=== PATIENT | male | born 1945 | race African-American/Black ===

== ENCOUNTER → 2016-10-10 11:58 | Outpatient (CLI) | payer MEDICARE, BC ==
[2016-10-10 12:32] LABS: BASOPHILS 0.4 % (0-2); EOSINOPHILS 2.6 % (0-7); HEMATOCRIT 40.7 % (42.0-54.0); HEMOGLOBIN 13.8 g/dL (13.5-17.5); IMMATURE GRANULOCYTES 0.2 % (0-5); LYMPHOCYTES 14.3 % (15-50); MCH 29.2 pg (26.0-34.0); MCHC 33.9 g/dL (31.0-37.0); MCV 86.2 fL (80.0-100.0); MEAN PLATELET VOLUME 10.3 fL (7.4-10.4); MONOCYTES 10.6 % (2-11); NEUTROPHILS 71.9 % (40-80); PLATELET COUNT 135 10x3/uL (130-400); RBC 4.72 10x6/uL (4.20-6.10); WBC 4.7 10x3/uL (4.8-10.8)
[2016-10-10 12:39] LABS: APTT 24.6 SECONDS (22.8-39.4)
[2016-10-10 12:40] LABS: INR 1.03 (0.85-1.17); PROTIME 13.4 SECONDS (11.6-15.0)
[2016-10-10 13:01] LABS: ALBUMIN 3.8 g/dL (3.4-5.0); ANION GAP 10.8 mmol/L (8-16); BILIRUBIN - TOTAL 0.73 mg/dL (0.2-1.3); CALCIUM 8.6 mg/dL (8.5-10.1); CARBON DIOXIDE 30.9 mmol/L (21.0-32.0); CREATININE - SERUM 1.1 mg/dL (0.6-1.3); POTASSIUM - SERUM 3.7 mmol/L (3.5-5.1); PROTEIN - SERUM 7.1 g/dL (6.4-8.2)
== END | disposition home or self-care (01) ==
LOC: D.LAB 11:58
DX: C08.9 Malignant neoplasm of major salivary gland, unspecified (principal)

== ENCOUNTER → 2016-10-24 11:16 | Outpatient (CLI) | payer MEDICARE, BC ==
[~2016-10-24] VITALS: Ht 188 cm; Wt 88.6 kg
--- NOTE | ~2016-10-24 | HEMODYNAMI ---
PATIENT:JASON JAMES MEDICAL RECORD: [id number] : 41 LOCATION:[facility] ADMISSION DATE: 10/24/16 Generatedon:10/24/201613:39 Patient name: JASON JAMES Patient #: [id number] SSN: [id number] : 1945 Date of study: 10/24/2016 Page: Of Hemodynamic Procedure Report Patient Data Patient Demographics Procedure consent was obtained First Name: JASON Gender: Male Last Name: ERIKA : 1945 [facility] Initial: D Age: 71 year(s) Patient #: [id number] Race: Black SSN: [id number] Additional ID: [id number] Contact details [address]: [address] [place] [address] State: [place] City: [place] Zip code: [address] Admission Admission Data Admission Date: 10/24/2016 Admission Time: 11:16 Arrival Date: 10/24/2016 Arrival Time: 13:30 Admit Source: Other Insurance Payor: Medicare Height (in.): 73.5 BSA: 2.12 (m2) Height (cm.): 186.69 BMI: 24.73 (kg/m2) Weight (lbs.): 190 Weight (kg.): 86.18 Lab Results Lab Result Date: 10/24/2016 Lab Result Time: 0:00 Biochemistry Name Units Result Min Max BUN mg/dl 13 --(--*-)-- 7 18 Creatinine mg/dl 1.1 --(--*-)-- 0.6 1.3 CBC Name Units Result Min Max Hemoglobin g/dl 14.5 --(*---)-- 13.5 17.5 Procedure Procedure Types Cath Procedure Diagnostic Procedure [facility] w/Coronaries PCI Procedure Coronary Stent Initial Miscellaneous Procedures Moderate Sedation up to 30 minutes Procedure Description Procedure Date Procedure Date: 10/24/2016 Procedure Start Time: 13:19 Procedure End Time: 13:36 Procedure Staff Name Function Reza Benavides MD Performing Physician Denia Eddy RT Scrub Rabia Sams RN Nurse Teresita Hu RT Monitor Procedure Data Cath Procedure Fluoroscopy Diagnostic fluoroscopy Total fluoroscopy Time: 3.8 time: 3.8 min min Diagnostic fluoroscopy Total fluoroscopy dose: 637 dose: 637 mGy mGy Contrast Material Contrast Material Type Amount (ml) Isovue 300 79 Entry Location Entry Primary Successful Side Size Upsize Upsize Entry Closure Succes sful Closure Location (Fr) 1 (Fr) 2 (Fr) Remarks Device Remarks Femoral Right 5 Fr 6 Fr Exoseal artery Short Estimated blood loss: 5 ml Diagnostic catheters Device Type Used For End Catheter Placement Cordis 5Fr JL 4.0 Left Coronary Catheter (MP) Angiography Cordis 5Fr 3DRC Catheter Right Coronary (MP) Angiography Cordis 5Fr Pigtail LV Angiography Catheter (MP) Procedure Complications No complications Procedure Medications Medication Administration Route Dosage Oxygen NC 2 l/min Heparin Flush Bag added to field 2 bags (1000units/500ml NS) Lidocaine 2% added to field 20 Fentanyl I.V. 50 mcg Versed I.V. 1 mg Fentanyl I.V. 25 mcg Versed I.V. 0.5 mg Fentanyl I.V. 25 mcg Versed I.V. 0.5 mg Heparin Bolus I.V. 4000 units Integrilin (Bolus I.V. 7.9 ml 2mg/ml) Hemodynamics Rest BSA: 2.12 (m2) HGB: 14.5 (g/dl) O2 Consumption: Estimated: 251.41 (ml/min) O2 Co nsumption indexed: Estimated:118.59 (ml/min/m) Heart Rate: 79 (bpm) Pressure Samples Time Site Value (mmHg) Purpose Heart Use Rate(bpm) 13:26 LV 127/14,15 Snapshot 86 Gradients Valve Time Site Site Mean SEP/DFP Peak To Heart Use 1 2 (mmHg) (sec/min) Peak Rate (mmHg) (bpm) Aortic 13:27 LV AO 86 Snapshots Pre Cath Intra NCS Post Cath Vital Signs Time Heart Resp SPO2 NIBP (mmHg) Rhythm Pain Sedation Rate (ipm) (%) Status Level (bpm) 13:00:22 78 17 99 144/85(110) NSR 0 (11) 10(A) , No pain 13:04:38 80 18 100 133/76(103) NSR 0 (11) 10(A) , No pain 13:08:48 78 18 100 126/77(103) NSR 0 (11) 10(A) , No pain 13:12:56 75 16 100 121/77(95) NSR 0 (11) 10(A) , No pain 13:17:04 82 17 99 122/74(101) NSR 0 (11) 9(A) , No pain 13:21:12 80 18 99 115/70(93) NSR 0 (11) 9(A) , No pain 13:25:15 85 18 98 123/75(91) NSR 0 (11) 9(A) , No pain 13:29:21 86 20 99 120/75(98) NSR 0 (11) 9(A) , No pain 13:33:31 88 16 98 113/64(88) NSR 0 (11) 9(A) , No pain Medications Time Medication Route Dose Verified Delivered Reason Notes Effectiveness by by 12:57:39 Oxygen NC 2 Rabia Rabia used for l/min Sams Sams cabinet maker RN 12:57:46 Heparin Flush added 2 Rabia Rabia used for Bag to bags Sams Sams procedure (1000units/500ml RN RN NS) 12:57:54 Lidocaine 2% added 20ml Rabia Rabia used for to vial Sams Sams procedure RN RN 13:15:40 Fentanyl I.V. 50 Rabia Rabia for sedation mcg Latrell Sams RN RN 13:15:47 Versed I.V. 1 mg Rabia Rabia for sedation Latrell Sams RN RN 13:28:24 Fentanyl I.V. 25 Rabia Rabia for sedation mcg Latrell Sams RN RN 13:28:29 Versed I.V. 0.5 Rabia Rabia for sedation mg Samssidney Sams RN RN 13:30:28 Fentanyl I.V. 25 Rabia Rabia for sedation mcg Latrell Sams RN RN 13:30:33 Versed I.V. 0.5 Rabia Rabia for sedation mg Latrell Sams RN RN 13:30:38 Integrilin I.V. 7.9ml Rabia Rabia for 2.1 ml (Bolus 2mg/ml) Sams Sams anticoagulation integrilin RN RN wasted 13:30:38 Heparin Bolus I.V. 4000 Rabia Rabia units Latrell Sams RN school transportation supervisor Log Time Note 12:46:41 Informed consent obtained and on chart 12:46:45 Diagnostic Cath Status : Elective 12:47:28 Rabia Sams RN sent for patient. Start room use. 12:47:29 Time tracking: Regular hours 12:47:33 Plan of Care:Hemodynamics will remain stable., Cardiac rhythm will remain stable., Comfort level will be maintained., Respiratory function will remain adequate., Patient/ family verbilizes understanding of procedure., Procedure tolerated without complication., Recovers from procedure without complications.. 12:48:25 Arrival Date: 10/24/2016 1:30:00 PM 12:48:34 Insurance Payor : Medicare 12:48:35 Admit Source: Other 12:48:46 Patient Height : 186.69 cm 12:48:53 Patient Weight : 86.18 kg 12:50:28 Patient received from Pre/Post Procedure Room to [facility] 2 Alert and oriented. Tansferred to table in Supine position. 12:50:29 Warm blankets applied, and zaid hugger turned on for patient comfort. 12:50:29 Correct patient and procedure confirmed by team. 12:50:30 ECG and BP/O2 sat monitors applied to patient. 12:52:12 Lab Result : BUN 13 mg/dl 12:52:12 Lab Result : Hemoglobin 14.5 g/dl 12:52:12 Lab Result : Creatinine 1.1 mg/dl 12:57:39 Oxygen 2 l/min NC was administered by Rabia Sams RN; used for procedure; 12:57:46 Heparin Flush Bag (1000units/500ml NS) 2 bags added to field was administered by Rabia Sams RN; used for procedure; 12:57:54 Lidocaine 2% 20ml vial added to field was administered by Rabia Sams RN; used for procedure; 12:59:14 Vital chart was started 12:59:15 Baseline sample Acquired. 12:59:20 Rhythm: sinus rhythm 12:59:22 Full Disclosure recording started 12:59:35 H&P Date Dictated: 10/10/2016 Within 30 days and on chart., H&P Addendum completed by physician on day of procedure. (MUST COMPLETE FOR ALL OUTPATIENTS). 12:59:36 Pre-procedure instructions explained to patient. 12:59:38 Pre-op teaching completed and patient verbalized understanding. 12:59:40 Family in waiting room. 12:59:41 Patient NPO since Midnight. 12:59:46 Is the patient allergic to Iodine/contrast media? No. 12:59:47 Was the patient premedicated? No 12:59:48 Is patient on blood thinner?No 12:59:49 Patient diabetic? No. 12:59:52 Previous problem with sedation/anesthesia? No ? 12:59:53 Snore? Yes 12:59:54 Sleep apnea? No 12:59:55 Deviated septum? No 12:59:56 Opens mouth fully? Yes 12:59:57 Sticks out tongue? Yes 12:59:58 Airway obstruction? No ? 13:00:01 Dentures? No ? 13:00:06 Pre procedure: right dorsailis pedis pulse 1+ Palpable, but thready & weak; easily obliterated 13:00:09 Pre procedure: left dorsailis pedis pulse 1+ Palpable, but thready & weak; easily obliterated 13:00:11 Patient pain scale 0/10 ?. 13:00:59 IV patent on arrival in left forearm with 0.9% NaCl at [facility]. 13:01:02 Lab results completed and on chart. 13:01:05 Right groin area was prepped with chlora-prep and draped in sterile fashion 13:01:06 Alarms reviewed by R. N. 13:01:07 Sharps counted by scrub and verified by R.N. 13:03:23 Use device set Femoral Dx 13:03:24 Acist Syringe opened to sterile field. 13:03:25 Bag Decanter opened to sterile field. 13:03:25 Medline Cath Pack opened to sterile field. 13:03:26 Terumo 5Fr [place] Sheath opened to sterile field. 13:03:26 St Francisco 260cm J .035 wire opened to sterile field. 13:03:27 Acist Hand Control opened to sterile field. 13:03:28 Acist Manifold opened to sterile field. 13:03:28 Diagnostic Infinity 5Fr Multipack catheter opened to sterile field. 13:03:28 Tegaderm 4 x 4 opened to sterile field. 13:11:55 Zero performed for pressure channel P1 13:12:05 Physician paged 13:14:08 Physician arrived 13:14:08 --------ALL STOP TIME OUT------ 13:14:09 Final Timeout: patient, procedure, and site verified with staff and physician. All members of the team are in agreement. 13:14:11 Right groin site verified by team. 13:14:15 Physical assessment completed. ASA score P 2 - A patient with mild systemic disease as per Reza Benavides MD. 13:14:18 Sedation plan: IV Moderate Sedation Versed, Fentanyl 13:15:40 Fentanyl 50 mcg I.V. was administered by Rabia Sams RN; for sedation; 13:15:47 Versed 1 mg I.V. was administered by Rabia Sams RN; for sedation; 13:19:24 Procedure started. 13:19:27 Local anesthetic to right femoral artery with Lidocaine 2% by Reza Benavides MD.INITIAL ACCESS ONLY 13:19:40 A 5 Fr sheath was inserted into the Right Femoral artery 13:20:58 A Cordis 5Fr JL 4.0 Catheter (MP) was advanced over the wire and used for Left Coronary Angiography. 13:21:23 LCA angiography performed. 13:21:29 Injector settings: Ml/sec: 3, Volume: 6, 13:22:57 Catheter removed. 13:23:03 A Cordis 5Fr 3DRC Catheter (MP) was advanced over the wire and used for Right Coronary Angiography. 13:23:44 RCA angiography performed. 13:23:50 Injector settings: Ml/sec: 3, Volume: 6, 13:25:19 Catheter removed. 13:25:56 A Cordis 5Fr Pigtail Catheter (MP) was advanced over the wire and used for LV Angiography. 13:26:41 LV hemodynamics recorded. 13:26:43 LV gram done using RIVERA 13:26:46 Injector settings: Ml/sec: 5, Volume: 15, 13:27:15 EF : 55 % 13:27:33 Catheter removed. 13:27:34 Proceeding to intervention. 13:28:03 Medtronic Launcher 6Fr HS I guide catheter opened to sterile field. 13:28:04 Owen Whisper J 300cm 0.014 guide wire opened to sterile field. 13:28:05 Terumo 6Fr [place] Sheath opened to sterile field. 13:28:05 Noonswoon BasixCompak Inflation Kit opened to sterile field. 13:28:13 Sheath upsized to a 6 Fr Short. 13::21 6 Fr hs 1 guide catheter was inserted over the wire 13::24 Fentanyl 25 mcg I.V. was administered by Rabia Sams RN; for sedation; ::29 Versed 0.5 mg I.V. was administered by Rabia Sams RN; for sedation; ::28 Fentanyl 25 mcg I.V. was administered by Rabia Sams RN; for sedation; ::33 Versed 0.5 mg I.V. was administered by Rabia Sams RN; for sedation; :: Integrilin (Bolus 2mg/ml) 7.9ml I.V. was administered by Rabia Sams RN; for anticoagulation; 2.1 ml integrilin wasted :: Heparin Bolus 4000 units I.V. was administered by Rabia Sams RN; ; ::28 Inflation Number: 1 A Performance Labtronic Integrity 3.5 X 15 stent was prepped and advanced across the Mid RCA. The stent was deployed at 14 NELSON for 0:30 (min:sec). 13:33:56 Stent catheter was removed intact over wire. 13:33:56 Wire removed. 13:33:57 Guide catheter removed. 13:35:05 Cordis 6Fr Exoseal opened to sterile field. 13:35:25 Sheath removed intact; hemostasis achieved with Exoseal to the Right Femoral artery. 13:35:28 Procedure ended.(Physican Out) 13:35:38 Fluoroscopy time 03.80 minutes. 13:35:47 Fluoroscopy dose: 637 mGy 13:35:47 Flurop Dose total: 637 13:35:51 Contrast amount:Isovue 300 79ml. 13:35:53 Sharps counted by scrub and verified by R.N. 13:35:54 Insertion/operative site no bleeding no hematoma. 13:35:57 Post-op/insertion site Right Femoral artery dressed using a 4 x 4 and Tegaderm. 13:35:59 Post right femoral artery:stable 13:36:01 Post Procedure Pulses reassessed and unchanged 13:36:03 Post procedure rhythm: unchanged. 13:36:06 Estimated blood loss: 5 ml 13:36:07 Post procedure instruction explained to patient.Patient verbalizes understanding. 13:36:08 Patient needs reinforcement of post procedure teaching. 13:36:28 Procedure type changed to Cath procedure, Diagnostic procedure, LHC, LHC w/Coronaries, PCI procedure, Coronary Stent Initial, Miscellaneous Procedures, Moderate Sedation up to 30 minutes 13:36:29 Procedure and supply charges have been captured, reviewed, submitted and are correct. 13:36:33 Procedure Complication : No complications 13:36:36 Vital chart was stopped 13:36:38 See physician's report for complete and final results. 13:36:40 Report given to Pre/Post Procedure Room. 13:36:42 Patient transfered to Pre/Post Procedure Room with Stretcher. 13:36:44 Procedure ended. 13:36:44 Full Disclosure recording stopped 13:36:55 ACC-PCI Only Patient was given prescriptions, or instructed by Reza Benavides MD to start/continue the following medications upon discharge: Plavix 13:36:58 End room use (Document Last) Intervention Summary Intervention Notes Time ActionType Lesion and Equipment Action# Pressure Duration Attributes Used 13:33:28 Place stent Mid RCA Medtronic 1 14 00:30 Integrity 3.5 X 15 stent Device Usage Item Name Manufacture Quantity Catalog Hospital Part Current Minimal L ot# / Number Charge Number Stock Stock Serial# Code Acist Acist 1 03366 878378 666005 660255 20 Syringe Medical Systems Inc Bag Microtek 1 2002S 161585 62650 679186 5 DecTiempy Medical Inc. Medline Cardinal 1 [id number] 603352 14241 488771 5 Cath Pack Health Terumo 5Fr Terumo 1 [id number] 158783 299248 498923 [address] Francisco 1 813952 378577 763122 326127 30 260cm J .035 wire Acist Hand Acist 1 39983 968644 079588 101580 5 Control Medical Systems Inc Acist Acist 1 20397 227806 067261 078200 5 Manifold Medical Systems Inc Diagnostic Cardinal 1 [id number] 173605 69580 683067 30 Orad 5Fr Multipack catheter Tegaderm 4 3M 1 1626W 445555 003918 742691 5 x 4 Cordis 5Fr Cardinal 1 828068 5 JL 4.0 Health Catheter (MP) Cordis 5Fr Cardinal 1 589610 5 3DRC Health Catheter (MP) Cordis 5Fr Cardinal 1 910408 5 Pigtail Health Catheter (MP) Medtronic Medtronic 1 LA6I 753947 17267 324312 1 Launcher 6Fr HS I guide catheter Owen Owen 1 [id number] 095716 939002 463821 5 Whisper J Vascular 300cm 0.014 guide wire Terumo 6Fr Terumo 1 [id number] 454547 274157 025218 40 [place] Sheath Merit Merit 1 [id number] 596383 241245 402142 15 Corventis Medical Inflation Kit Medtronic Medtronic 1 [id number] 059473 585553 1 0 [id number] Integrity 3.5 X 15 stent Cordis 6Fr Cardinal 1 EX600 594038 801577 479183 10 [facility] Signature Audit [place] Stage Time Signature Unsigned Intra-Procedure 10/24/2016 Denia Eddy 1:39:34 PM RT(R) Signatures Monitor : Teresita Hu Signature : RT Date : Time : [place] [id number] [place] [id number]
[~2016-10-24 11:16] MED LIST: HYZAAR 100-12.51 TAB PO; LEVOTHYROXINE50 MCG PO; PLAVIX75 MG PO; ZOCOR20 MG PO; ZYLOPRIM300 MG PO
[2016-10-24 12:11] VITALS: BP 144/82; Ht 188 cm; Wt 88.6 kg
[2016-10-24 12:15] LABS: BASOPHILS 0.2 % (0-2); EOSINOPHILS 1.9 % (0-7); HEMATOCRIT 41.9 % (42.0-54.0); HEMOGLOBIN 14.5 g/dL (13.5-17.5); LYMPHOCYTES 16.1 % (15-50); MCH 29.7 pg (26.0-34.0); MCHC 34.6 g/dL (31.0-37.0); MCV 85.7 fL (80.0-100.0); MEAN PLATELET VOLUME 10.2 fL (7.4-10.4); MONOCYTES 10.8 % (2-11); PLATELET COUNT 140 10x3/uL (130-400); RBC 4.89 10x6/uL (4.20-6.10); RDW 12.2 % (11.5-14.5); WBC 5.2 10x3/uL (4.8-10.8)
[2016-10-24 12:26] LABS: ANION GAP 10.2 mmol/L (8-16); CALCIUM 8.7 mg/dL (8.5-10.1); CARBON DIOXIDE 30.4 mmol/L (21.0-32.0); CREATININE - SERUM 1.1 mg/dL (0.6-1.3); POTASSIUM - SERUM 3.6 mmol/L (3.5-5.1)
--- NOTE | 2016-10-24 14:00 | NUR ---
RIGHT GROIN CDI, NO HEMATOMA OR BLEEDING AT SITE, SOFT TO TOUCH. AT SIDE
--- NOTE | 2016-10-24 14:30 | NUR ---
NO CHANGE TO RIGHT GROIN, NO HEMATOMA OR BLEEDING AT SITE, VSS
--- NOTE | 2016-10-24 16:15 | NUR ---
SANDWICH AND COLA SERVED. AT SIDE. DENIES PAIN OR NEEDS
--- NOTE | 2016-10-24 17:50 | NUR ---
IV D'C WITH CATH TIP INTACT, WRITTEN AND VERBAL D'C INSTRUCTIONS GIVEN TO PT AND - VERBAL UNDERSTANDING NOTED, UP TO RESTROOM-VOID. DENIES PAIN OR FURTHUR NEEDS. D'C HOME WITH .
--- NOTE | 2016-10-27 12:17 | OP ---
PATIENT NAME: JASON JAMES MEDICAL RECORD: [id number] :41 LOCATION:[facility] ADMISSION DATE: SURGEON: ALESSANDRA ESQUEDA MD DATE OF OPERATION: 10/24/2016 PROCEDURE: Left heart catheterization, selective coronary angiography, right femoral artery approach. CATHETERS: A 5-[place] sheath, 5/4 left and right Himanshu, 5/4 pig. The procedure was well tolerated. The patient returned to whipple, sheath removed and ExoSeal device placed. FINDINGS: Left ventriculography 30-degree RIVERA view: Normal wall motion, normal systolic function. CORONARY ANATOMY. Left main: Left main is free of disease. LAD: LAD is free of disease in the diagonal system. CIRCUMFLEX: Free of disease in the marginal system. RIGHT CORONARY ARTERY: Has a 78% stenosis in its mid portion correlating nicely with nuclear stress testing. PLAN: Intervention momentarily. DESCRIPTION OF PROCEDURE: A 5-[place] sheath was changed for catheter 6-[place] sheath. A hockey stick guide catheter provided a good guide catheter support. A 300 cm Whisper wire was placed across the site occluded lesion down this portion of vessel. Stent deployed was a 3.5 x 15 mm Integrity nondrug-eluting stent up to 14 atmospheres. Final angiography shows excellent resolution of 80% stenosis, no significant residual. DREA flow was 3 throughout the procedure. Integrilin was used in the case. Plavix was loaded in the lab. Sheath was closed with ExoSeal device. TRANSINT:[id number] Voice Confirmation ID: [id number] DOCUMENT ID: [id number] ALESSANDRA ESQUEDA MD at 1217 CC: [id number] DICTATION DATE: 10/24/16 1343 LENS INSPECTOR: 10/24/16 1415 DEP CLI 10/24/16 [place] [address]
== END | disposition home or self-care (01) ==
LOC: D.CATH 11:16
PROVIDERS: Internal Medicine Interventional Cardiology
DX: I20.9 Angina pectoris, unspecified (principal); E78.5 Hyperlipidemia, unspecified; R94.31 Abnormal electrocardiogram [ECG] [EKG]; I10 Essential (primary) hypertension; Z01.812 Encounter for preprocedural laboratory examination; Z01.810 Encounter for preprocedural cardiovascular examination

== ENCOUNTER → 2017-04-30 10:06 | Outpatient (CLI) | payer MEDICARE, BC ==
[2016-10-24 12:11] VITALS: BMI 25.1
== END | disposition home or self-care (01) ==
LOC: D.CT 10:06
DX: R10.31 Right lower quadrant pain (principal); R63.4 Abnormal weight loss

== ENCOUNTER → 2018-08-16 09:37 | Outpatient (CLI) | payer MEDICARE, BC ==
[2016-10-24 12:11] VITALS: BMI 25.1
--- NOTE | ~2018-08-16 | EC ---
PATIENT:JASON JAMES DATE OF SERVICE: 08/16/18 SEX: M MEDICAL RECORD: [id number] DATE OF : 41 [facility] AGE OF PATIENT: 73 ADMISSION DATE: 08/16/18 REFERRING PHYSICIAN: INTERPRETING PHYSICIAN: ALESSANDRA ESQUEDA MD ECHOCARDIOGRAM REPORT ECHO CHARGES 4 ECHO COMPLETE Date: 08/16/18 CLINICAL DIAGNOSIS: H/O HTN/CAD ECHOCARDIOGRAPHIC MEASUREMENTS (adult normal given) AC root (d.<3.7cm) 3.6 cm LV Septum d (<1.2 cm> 1.2 cm Valve Excursion 2.1 cm LV Septum (systole) 1.7 cm Left Atria (s.<4.0cm> 2.8 cm LVPW d(<1.2cm) 1.1 cm RV (d.<2.3cm) 2.9 cm LVPW (sytole) 1.7 cm LV diastole(<5.6CM) 4.9 cm MV E-F(>70mm/sec) cm LV systole 2.8 cm LVOT Diameter 1.9 cm MV exc.(>10mm) cm Est.ejection fraction (50-75%) % DOPPLER: LVIT cm/sec A 55.0 cm/sec E 75.0 cm/sec LA cm/sec RVSP 42.0 mmHg LVOT 106 cm/sec AOP1/2T m/s Asc. Ao 142 cm/sec RVOT 79.0 cm/sec RA cm/sec PA 100 cm/sec AV Gradient Peak 8.1 mmHg AV Mean 3.4 mmHg AV Area 2.3 cm MV Gradient Peak 2.4 mmHg MV Mean 0.89 mmHg MV Area cm COMMENTS: OP - HC Lcpc: Beverly GATESOE Terminal Computer Operator: 3 Dr. Benavides TAPE# PACS Pericardial Effusion N DATE OF SERVICE: Adequate 2-D echo, color-flow and spectral Doppler, and M-mode. No LVH. LV internal dimensions are normal. Wall motion is normal. EF is greater than or equal to 55%. Aortic valve is tricuspid. No evidence of stenosis on Doppler interrogation. Left atrium is normal at 2.8 cm. Mitral valve shows no prolapse. Mild MR. Right-sided chambers are grossly normal. Trace TR. ECHOCARDIOGRAM REPORT [id number] JASON JAMES TRANSINT:[id number] Voice Confirmation ID: [id number] DOCUMENT ID: [id number] ALESSANDRA ESQUEDA MD CC: [id number] DICTATION DATE: 08/19/18 1352 COARSE WIRE DRAWER: 08/19/18 1541 DEP CLI 08/16/18 [place] [id number]
== END | disposition home or self-care (01) ==
LOC: D.HCCARDIO 09:37
PROVIDERS: ATTEND Internal Medicine Interventional Cardiology
DX: I25.10 Atherosclerotic heart disease of native coronary artery without angina pectoris (principal)

== ENCOUNTER → 2019-08-18 10:49 | Outpatient (CLI) | payer MEDICARE, BC ==
[2016-10-24 12:11] VITALS: BMI 25.1
--- NOTE | 2019-08-20 10:52 | EC ---
PATIENT:JASON JAMES DATE OF SERVICE: 08/18/19 SEX: M MEDICAL RECORD: [id number] DATE OF : 41 LOCATION[facility] AGE OF PATIENT: 74 ADMISSION DATE: 08/18/19 REFERRING PHYSICIAN: INTERPRETING PHYSICIAN: ALESSANDRA ESQUEDA MD ECHOCARDIOGRAM REPORT ECHO CHARGES 4 ECHO COMPLETE Date: 08/18/19 CLINICAL DIAGNOSIS: HTN/MITRAL AND TRICUSPID REGURG ECHOCARDIOGRAPHIC MEASUREMENTS (adult normal given) AC root (d.<3.7cm) 3.8 cm LV Septum d (<1.2 cm> 1.5 cm Valve Excursion 2.0 cm LV Septum (systole) 1.8 cm Left Atria (s.<4.0cm> 3.5 cm LVPW d(<1.2cm) 1.4 cm RV (d.<2.3cm) 3.3 cm LVPW (sytole) 1.7 cm LV diastole(<5.6CM) 5.7 cm MV E-F(>70mm/sec) cm LV systole 3.2 cm LVOT Diameter 2.0 cm MV exc.(>10mm) 0.90 cm Est.ejection fraction (50-75%) % DOPPLER: LVIT cm/sec A 61.0 cm/sec E 53.0 cm/sec LA cm/sec RVSP 33 mmHg LVOT 97 cm/sec AOP1/2T m/s Asc. Ao 128 cm/sec RVOT 105 cm/sec RA cm/sec PA 123 cm/sec AV Gradient Peak 6.55 mmHg AV Mean 3.39 mmHg AV Area 3.0 cm MV Gradient Peak 2.54 mmHg MV Mean 1.23 mmHg MV Area cm COMMENTS: Package Worker: 2 RISHABH GARCIA Radio Performer: 3 Dr. Benavides TAPE# PACS Pericardial Effusion N DATE OF SERVICE: Adequate 2D, color flow imaging, spectral Doppler, and M-Mode. No LVH. LV internal dimension is normal. Wall motion is normal. EF greater than or equal to 55%. Aortic valve is tricuspid. No evidence of stenosis by Doppler interrogation. Left atrium is normal. Mitral valve shows no prolapse. Trace MR. Right-sided chambers are grossly normal. Trace TR. TRANSINT:[id number] Voice Confirmation ID: [id number] DOCUMENT ID: [id number] ECHOCARDIOGRAM REPORT [id number] ERIKAJASON PINO GREGORY A MD at 1052 CC: [id number] DICTATION DATE: 08/19/19 1511 INDUSTRIAL CONVEYOR BELT REPAIRER: 08/20/19 0112 DEP CLI 08/18/19 [place] [id number] [place] [address]
== END | disposition home or self-care (01) ==
LOC: D.HCCECHO 10:49
PROVIDERS: ATTEND Internal Medicine Interventional Cardiology
DX: I10 Essential (primary) hypertension (principal)